=== PATIENT | female | born 1965 | race Caucasian/White ===

== ENCOUNTER 2021-08-13 19:27 | Emergency (ER) | payer MEDICAID ==
[~2021-08-13] VITALS: Ht 160 cm; Wt 65.0 kg
[~2021-08-13 19:27] MED LIST: SITA50TA3 PO
[2021-08-13 20:28] VITALS: BP 138/63
== END 2021-08-13 22:44 | disposition home or self-care (01) ==
LOC: ER 19:27
DX: S92.511A Displaced fracture of proximal phalanx of right lesser toe(s), initial encounter for closed fracture (principal); M79.671 Pain in right foot; E11.9 Type 2 diabetes mellitus without complications; Z90.710 Acquired absence of both cervix and uterus; Z98.890 Other specified postprocedural states; Z79.899 Other long term (current) drug therapy; X58.XXXA Exposure to other specified factors, initial encounter; Y93.89 Activity, other specified; Y92.89 Other specified places as the place of occurrence of the external cause; Y99.8 Other external cause status
CPT/HCPCS: 73630; 99283

== ENCOUNTER 2022-08-22 06:33 | Emergency (ER) | payer MEDICAID, OTHER ==
[~2022-08-22] VITALS: Ht 167.6 cm; Wt 66.0 kg
[2022-08-22] MEDS ORDERED: HYDROCODONE/ACETAMINOPHEN 5/325MG TABLET PO ONE (08:15)
[2022-08-22] MEDS ORDERED: IBUPROFEN 600MG TABLET PO ONE (08:15)
[2022-08-22 08:31] VITALS: BP 128/76
[2022-08-22] MEDS ORDERED: LIDOCAINE 5% PATCH TOP SCH ×2 (09:00→10:45)
[2022-08-22] MEDS ORDERED: IBUP-2029 MT (10:16)
== END 2022-08-22 10:41 | disposition home or self-care (01) ==
LOC: ER 06:33
DX: S20.211A Contusion of right front wall of thorax, initial encounter (principal); S80.02XA Contusion of left knee, initial encounter; E11.9 Type 2 diabetes mellitus without complications; Z98.890 Other specified postprocedural states; W01.0XXA Fall on same level from slipping, tripping and stumbling without subsequent striking against object, initial encounter; Y93.89 Activity, other specified; Y92.89 Other specified places as the place of occurrence of the external cause; Y99.8 Other external cause status
CPT/HCPCS: 29505; 71101; 73562; 99284